=== PATIENT | female | born 1975 | race Hispanic/Latino ===

== ENCOUNTER 2017-04-06 01:38 | Emergency (ER) | payer OTHER ==
[~2017-04-06] VITALS: Ht 154.9 cm; Wt 86.4 kg
[~2017-04-06 01:38] MED LIST: CEFU500T PO; ZIT250 PO
[2017-04-06 01:48] VITALS: BP 125/81; PULSE 95; RESP 18; O2SAT 100
--- NOTE | 2017-04-06 02:10 | ED.REPORT ---
HPI-General Illness Date of Service Apr 06, 2017 ED Provider: Art Siddiqi MD A 41 year old female with a history of asthma and polysubstance abuse presents to the ED seeking detox from heroin and meth. The patient is seeking placement at [facility] because she has had previous success with Suboxone for a 25 day period while in prison. She admits to heroin use 4 hours prior to arrival. She typically uses IV heroin and occasionally uses meth. Patient is currently asymptomatic. She denies any EtOH use. Patient previously had a 3.5 year period of sobriety. She currently lives in an outside of [facility] and has a boyfriend who uses is and is also seeking detox. The patient denies any infections secondary to needle exposure. Nursing Notes Stated Complaint: SUBSTANCE ABUSE Chief Complaint: Substance Abuse Nursing Notes Reviewed: Yes Allergies: Coded Allergies: No Known Allergies (Verified Allergy, Unknown, 10/05/15) Scheduled Azithromycin (Zithromax) 250 Mg Tablet 250 MG PO DAILY Buprenorphine/Naloxone 8-2 mg (Buprenorphine/Naloxone 8-2 mg) 1 Each Tab.subl 2 TABLET SL DAILY Cefuroxime Axetil (Ceftin) 500 Mg Tablet 500 MG PO BID General Time Seen by MD: 02:09 Chief Complaint Other (Seeking detox) Hx Obtained From: Patient Arrived By: Walk-in Sudden in Onset?: No Onset Occurred: Onset unknown Symptom Duration: Since onset Pertinent Negative: Pt denies other symptoms Recent Healthcare: No recent doctor visit, No recent hospitalization Past Medical History Past Medical History Asthma Heroin/meth abuse Past Surgical History BTL Reports: Appendectomy, Cholecystectomy, Tonsillectomy Smoking History Current Every Day Smoker, Heavy Tobacco Smoker Social History Alcohol Use: Denies alcohol use Drug Use: Denies drug use, In recovery Other Social History: From out of town Occupation lives at [facility] Ambulatory Status Independent Review of Systems Seeking detox Otherwise asymptomatic Complete sys rev & neg: except as marked. Physical Exam Vital Signs Vital Signs Date Time Temp Pulse Resp B/P Pulse Ox O2 Delivery O2 Flow Rate FiO2 04/06/17 01:48 36.9 95 18 125/81 100 Room Air Initial VS: Reviewed Neck: Supple, Non-tender, Full range of motion Skin: Warm, Dry, No cyanosis Neurologic: Alert, Oriented, Nonfocal Psychiatric: Mood/affect normal, Behavior normal, Normal thought content General/Constitutional: Awake, Alert, No acute distress Head / Eyes: Atraumatic, Normocephalic Respiratory / Chest: Atraumatic, Breath sounds NL, Breath sounds = bilat, No respiratory distress Cardiovascular: Heart rate NL, Regular rhythm, Heart sounds NL, No murmurs, Peripheral circulation NL, Pulses = bilaterally Abdomen: Atraumatic, Soft Upper Extremities Upper Extremity / MS: Atraumatic, Neurologic intact, Vascular intact Multiple tract hill without evidence of abscess Nodules present with tender areas. Lower Extremity / Pelvis / MS: Atraumatic, Inspection NL, Neurologic intact, Vascular intact Re-Eval/Medical Decision Med Decision/Clinical Course IV heroin and meth user who presents with request for Suboxone and referral to [facility]. She was given buprenorphine/naloxone 8/2 tablets, 2 tablets per day, #10. She was given the priority access line for [facility]. Time of Eval: 02:14 Patient Status: Condition improved Re-Evaluation/Progress Note: All questions are addressed. The patient understands and agrees with the intended treatment plan to follow up at [facility]. Counseled Regarding: Diagnosis, Need for follow-up, When/why to return to ED Discharge & Departure Primary Impression: Substance abuse Disposition: Home Discharge Condition All VS Reviewed: Yes Condition: Improved Patient Instructions: Buprenorphine/Naloxone (Into the mouth) Additional Instructions: No more heroin, no more methamphetamine. 24 hours after your last heroin use, start Suboxone 8/2 tabs, 2 daily, #10 prescribed. Call [phone], the [facility] priority access line, to get an appointment to see me this week. Encourage your partner to get into treatment also. Referrals: Desire Workman MD (PCP) [facility] Scribe Attestation Portions of this note were transcribed by Nga Moseley. I, Dr. Siddiqi personally performed the history, physical exam and medical decision-making; I reviewed and confirmed the accuracy of the information in the transcribed note. copies to: Desire Workman MD, Art Toussaint MD Apr 06, 2017 02:10 NGA MOSELEY Apr 06, 2017 02:15
[2017-04-06] MEDS ORDERED: BUPR1TAB36 SL (02:22)
== END 2017-04-06 02:40 | disposition home or self-care (01) ==
LOC: SED 01:38
DX: F11.10 Opioid abuse, uncomplicated (principal); F15.10 Other stimulant abuse, uncomplicated; J45.909 Unspecified asthma, uncomplicated; F17.200 Nicotine dependence, unspecified, uncomplicated